=== PATIENT | male | born 1965 | race Caucasian/White ===

== ENCOUNTER → 2017-09-11 | Outpatient (CLI) | payer OTHER ==
[~2017-09-11] MED LIST: ACET325 PO; ACETAMINOP325 MG/10. PT; ALBU90OI INH; AMLO5 PO; AMOX500 PO; ASCO500 PT; ASPI325 PO; ASPI325 PT; ATOR80 PO; BASAGLAR K100 UNIT/1 SC; BISA10S PR; Bactrim 400-801 EACH PT; CEPH500 PO; CHOL10002 PT; CITA20 PO; CITA20 PT; CLON.2 PT; CLON.3TP TOP; CODGUAEL PO; CVS DISPOSABLE399 ML PR; Docu Liqui50 MG/5 ML PT; FENO54; GUAI600T33 PO; HYDACE5 PO; HYDRA25 PT; Hair, Skin & N1 EACH PT; INSDET100 SC; INSU100I6 SC; INSULANPEN SC; LISI20 PO; LISI5 PO; LITH300C PO; LORA1 PT; LOSA25 PT; METO10 PT; METO25 PO; METO25ER PT; MORP20L PT; Milk Of Ma400 MG/5 M PO; Milk Of Ma400 MG/5 M PT; Multivitamin1 EAC1 PT; NAPR375 PO; NEOPOLHCSU AU; NICO21TP SC; NUTRISOURCE FI205 GM PT; ONDA4ODT SL; Omeprazole20 M1 PT; PANT40; PANT40 PT; POTA20LUD PT; PRAV20 PO; PROM25 PT; Pedi-Dri 100,0060 GM TOP; Protonix40 MG PT; RANI150; RANI150 PT; SCOPTP TOP; SPACER IH; Ventolin Soln3 ML INH
[2017-09-11 21:44] LABS: Adenovirus F 40/41 Not Detected (NOT DETECT); Astrovirus Not Detected (NOT DETECT); Campylobacter Sp Not Detected (NOT DETECT); Cryptosporidium Not Detected (NOT DETECT); Cyclospora Cayetanensis Not Detected (NOT DETECT); E. Coli O157 Not Detected (NOT DETECT); Entamoeba Histolytica Not Detected (NOT DETECT); Enteroaggregative E. coli-EAEC Not Detected (NOT DETECT); Enteropathogenic E. coli-EPEC Not Detected (NOT DETECT); Enterotoxigenic E. coli-ETEC Not Detected (NOT DETECT); Giardia Lamblia Not Detected (NOT DETECT); Norovirus GI/GII Not Detected (NOT DETECT); Plesiomonas Shigelloides Not Detected (NOT DETECT); Rotavirus A Not Detected (NOT DETECT); Salmonella Sp Not Detected (NOT DETECT); Sapovirus Not Detected (NOT DETECT); Shiga Toxin-prod E. coli-STEC Not Detected (NOT DETECT); Shigella/Enteroin E. coli-EIEC Not Detected (NOT DETECT); Vibrio Cholerae Not Detected (NOT DETECT); Vibrio Sp Not Detected (NOT DETECT); Yersinia Enterocolitica Not Detected (NOT DETECT)
== END | disposition home or self-care (01) ==
LOC: LAB UVN 21:42
PROVIDERS: Family Medicine
DX: R19.7 Diarrhea, unspecified (principal)
CPT/HCPCS: 87507

== ENCOUNTER 2017-09-29 23:14 | Emergency (ER) | payer OTHER ==
[~2017-09-29] VITALS: Ht 172.7 cm; Wt 63.2 kg
[~2017-09-29 23:14] MED LIST changes: -ACETAMINOP325 MG/10. PT; -ASCO500 PT; -BASAGLAR K100 UNIT/1 SC; -CHOL10002 PT; -CLON.2 PT; -HYDRA25 PT; -Hair, Skin & N1 EACH PT; -INSULANPEN SC; -LORA1 PT; -LOSA25 PT; -METO10 PT; -MORP20L PT; -Multivitamin1 EAC1 PT; -ONDA4ODT SL; -Omeprazole20 M1 PT; -POTA20LUD PT; -PROM25 PT; -Protonix40 MG PT
[2017-09-30] MEDS ORDERED: LOSA25 PT (00:24)
[2017-09-30] MEDS ORDERED: Hair, Skin & N1 EACH PT (00:25)
[2017-09-30] MEDS ORDERED: RANI150 PT (00:27)
[2017-09-30] MEDS ORDERED: CLON.2 PT (00:28)
[2017-09-30 00:29] LABS: BASOPHILS ABSOLUTE AUTO 0.07 K/mm3 (0.00-0.23); BASOPHILS PERCENT AUTO 1 % (0-2); EOSINOPHILS ABSOLUTE AUTO 0.65 K/mm3 (0.00-0.68); EOSINOPHILS PERCENT AUTO 5 % (0-6); Hematocrit 36.3 % (37.0-53.0); IMMATURE GRAN ABSOLUTE AUTO 0.07 K/mm3 (0.00-0.10); IMMATURE GRAN PERCENT AUTO 1 % (0-1); LYMPHOCYTES PERCENT AUTO 21 % (21-46); MONOCYTES ABSOLUTE AUTO 0.78 K/mm3 (0.16-1.47); MONOCYTES PERCENT AUTO 6 % (4-13); Mean Corpuscular HGB 25.5 pg (26.0-34.0); Mean Corpuscular HGB Conc 30.3 g/dL (31.5-36.5); Mean Corpuscular Volume 84 fL (80-100); Mean Platelet Volume 10.7 fL (9.1-12.4); NEUTROPHILS ABSOLUTE AUTO 9.41 K/mm3 (1.96-9.15); NEUTROPHILS PERCENT AUTO 68 % (41-73); Platelet Count 338 K/mm3 (150-400); RDW Standard Deviation 49.5 fL (35.1-46.3); Red Blood Cell Count 4.31 M/mm3 (4.30-5.90); White Blood Cell Count 13.88 K/mm3 (4.00-11.30)
[2017-09-30 00:48] LABS: Alanine Aminotransfer (ALT/SGP 21 U/L (12-78); Albumin, Blood 3.6 g/dL (3.4-5.0); Albumin/Globulin Ratio 0.6 (0.8-1.8); Alk Phos 104 U/L (50-136); Anion Gap 8 mmol/L (6-16); Aspartate Aminotrans (AST/SGOT 14 U/L (12-37); Bilirubin, Total 0.3 mg/dL (0.1-1.0); Blood Urea Nitrogen 38 mg/dL (8-24); Bun/Creatinine Ratio 31.9 (12.0-20.0); CO2, Blood 33 mmol/L (21-32); Chloride, Blood 99 mmol/L (98-108); Creatinine, Blood 1.19 mg/dL (0.60-1.20); Globulin, Blood 5.8 g/dL (2.2-4.0); Glomerular Filtration Rate >60 (60-); Glucose, Blood 111 mg/dL (70-99); Potassium, Blood 3.4 mmol/L (3.5-5.5); Sodium, Blood 140 mmol/L (136-145); Total Protein, Blood 9.4 g/dL (6.4-8.2)
[2017-09-30] MEDS ORDERED: HYDRA25 PT (00:48)
[2017-09-30] MEDS ORDERED: LORA1 PT (00:48)
[2017-09-30] MEDS ORDERED: BASAGLAR K100 UNIT/1 SC (00:52)
== END 2017-09-30 02:30 | disposition short-term general hospital (02) ==
LOC: ER 23:14
PROVIDERS: Emergency Medicine
DX: K92.2 Gastrointestinal hemorrhage, unspecified (principal); I12.9 Hypertensive chronic kidney disease with stage 1 through stage 4 chronic kidney disease, or unspecified chronic kidney disease; N18.3 Chronic kidney disease, stage 3 (moderate); E78.5 Hyperlipidemia, unspecified; F32.9 Major depressive disorder, single episode, unspecified; Z86.73 Personal history of transient ischemic attack (TIA), and cerebral infarction without residual deficits; Z79.82 Long term (current) use of aspirin; Z79.899 Other long term (current) drug therapy; Z79.4 Long term (current) use of insulin; Z87.891 Personal history of nicotine dependence
CPT/HCPCS: 80053; 82272; 83690; 85025; 86850; 86900; 86901; 96374; 96375; 99285; C9113; J2405

== ENCOUNTER → 2017-10-09 | Outpatient (CLI) | payer OTHER ==
[~2017-10-09] MED LIST changes: +ACETAMINOP325 MG/10. PT; +ASCO500 PT; +BASAGLAR K100 UNIT/1 SC; +CHOL10002 PT; +CLON.2 PT; +HYDRA25 PT; +Hair, Skin & N1 EACH PT; +INSULANPEN SC; +LORA1 PT; +LOSA25 PT; +METO10 PT; +MORP20L PT; +Multivitamin1 EAC1 PT; +ONDA4ODT SL; +Omeprazole20 M1 PT; +POTA20LUD PT; +PROM25 PT; +Protonix40 MG PT
== END | disposition home or self-care (01) ==
LOC: LAB UVN 12:00
DX: L08.9 Local infection of the skin and subcutaneous tissue, unspecified (principal)
CPT/HCPCS: 87070; 87077; 87147; 87186; 87205

== ENCOUNTER 2017-11-12 10:12 | Emergency (ER) | payer OTHER ==
[~2017-11-12] VITALS: Ht 172.7 cm; Wt 63.2 kg
[~2017-11-12 10:12] MED LIST changes: -ACETAMINOP325 MG/10. PT; -ASCO500 PT; -CHOL10002 PT; -INSULANPEN SC; -METO10 PT; -MORP20L PT; -Multivitamin1 EAC1 PT; -ONDA4ODT SL; -Omeprazole20 M1 PT; -POTA20LUD PT; -PROM25 PT; -Protonix40 MG PT
[2017-11-12] MEDS ORDERED: METO10 PT (10:30)
[2017-11-12] MEDS ORDERED: INSULANPEN SC (10:30)
[2017-11-12] MEDS ORDERED: POTA20LUD PT (10:31)
[2017-11-12 11:10] LABS: Calcium, Ionized (POC) 1.17 mmol/L (1.10-1.46); Chloride (POC) 100 mmol/L (98-108); Creatinine (POC) 1.2 mg/dL (0.8-1.3); Glucose (ISTAT POC) 191 mg/dL (70-99); Potassium (POC) 3.3 mmol/L (3.5-5.5); Sodium (POC) 143 mmol/L (135-148); Total CO2 (POC) 30 mmol/L (21-32)
[2017-11-12] MEDS ORDERED: Protonix40 MG PT (11:14)
== END 2017-11-12 12:20 | disposition home or self-care (01) ==
LOC: ER 10:12
PROVIDERS: Emergency Medicine
DX: K92.2 Gastrointestinal hemorrhage, unspecified (principal); G93.40 Encephalopathy, unspecified; Z79.899 Other long term (current) drug therapy; Z79.4 Long term (current) use of insulin; Z79.82 Long term (current) use of aspirin; Z86.73 Personal history of transient ischemic attack (TIA), and cerebral infarction without residual deficits; I12.9 Hypertensive chronic kidney disease with stage 1 through stage 4 chronic kidney disease, or unspecified chronic kidney disease; N18.3 Chronic kidney disease, stage 3 (moderate); E78.5 Hyperlipidemia, unspecified; F32.9 Major depressive disorder, single episode, unspecified
CPT/HCPCS: 36415; 80047; 82271; 82272; 85014; 96374; 99284; C9113

== ENCOUNTER 2018-02-25 09:09 | Inpatient (IN) | payer OTHER ==
[~2018-02-25] VITALS: Ht 167.6 cm; Wt 58.0 kg
[~2018-02-25 09:09] MED LIST changes: +INSULANPEN SC; +METO10 PT; +POTA20LUD PT; +Protonix40 MG PT
[2018-02-25 09:35] LABS: BASOPHILS ABSOLUTE AUTO 0.05 K/mm3 (0.00-0.23); BASOPHILS PERCENT AUTO 0 % (0-2); EOSINOPHILS ABSOLUTE AUTO 0.01 K/mm3 (0.00-0.68); EOSINOPHILS PERCENT AUTO 0 % (0-6); Hematocrit 44.6 % (37.0-53.0); Hemoglobin 13.8 g/dL (13.5-17.5); IMMATURE GRAN ABSOLUTE AUTO 0.07 K/mm3 (0.00-0.10); IMMATURE GRAN PERCENT AUTO 0 % (0-1); LYMPHOCYTES ABSOLUTE AUTO 1.56 K/mm3 (0.84-5.20); LYMPHOCYTES PERCENT AUTO 8 % (21-46); MONOCYTES PERCENT AUTO 6 % (4-13); Mean Corpuscular HGB Conc 30.9 g/dL (31.5-36.5); Mean Corpuscular Volume 81 fL (80-100); Mean Platelet Volume 12.8 fL (9.1-12.4); NEUTROPHILS ABSOLUTE AUTO 16.75 K/mm3 (1.96-9.15); NEUTROPHILS PERCENT AUTO 85 % (41-73); Platelet Count 350 K/mm3 (150-400); RDW Coefficient Variation 18.6 % (11.7-14.2); RDW Standard Deviation 51.5 fL (35.1-46.3); Red Blood Cell Count 5.53 M/mm3 (4.30-5.90); White Blood Cell Count 19.64 K/mm3 (4.00-11.30)
[2018-02-25 09:53] LABS: Albumin, Blood 4.1 g/dL (3.4-5.0); Albumin/Globulin Ratio 0.7 (0.8-1.8); Bilirubin, Total 0.5 mg/dL (0.1-1.0); Calcium, Blood 10.8 mg/dL (8.5-10.1); Creatinine, Blood 1.58 mg/dL (0.60-1.20); Globulin, Blood 6.3 g/dL (2.2-4.0); Potassium, Blood 3.3 mmol/L (3.5-5.5); Total Protein, Blood 10.4 g/dL (6.4-8.2)
[2018-02-25 10:12] LABS: Source, Urine Catheter
[2018-02-25 10:18] LABS: Bilirubin, Urine Neg (Neg); Blood, Urine 3+ (Neg); Glucose Qualitative, Urine 3+ (Neg); Ketones, Urine 1+ (Neg); Leukocyte Esterase, Urine 3+ (Neg); Nitrite, Urine Neg (Neg); Protein, Urine 3+ (Neg); Urobilinogen, Urine NORM (Normal)
[2018-02-25 10:51] LABS: Appearance, Urine Cloudy (Clear); Color, Urine Yellow (P-Yellow)
[2018-02-25 10:53] LABS: White Blood Cells, Urine TNTC /hpf (0-5)
[2018-02-25 10:54] LABS: Bacteria Many /hpf; Squamous Epithelial Cells Few /hpf (Few)
[2018-02-25 11:46] LABS: International Normalized Ratio 1.03; Prothrombin Time Results 10.6 Sec (9.7-11.5)
[2018-02-25] MEDS ORDERED: ASCO500 PT (12:44)
[2018-02-25] MEDS ORDERED: CHOL10002 PT (12:46)
[2018-02-25] MEDS ORDERED: LOSA25 PT (12:46)
[2018-02-25] MEDS ORDERED: Multivitamin1 EAC1 PT (12:47)
[2018-02-25] MEDS ORDERED: Omeprazole20 M1 PT (12:48)
[2018-02-25] MEDS ORDERED: CLON.2 PT (12:50)
[2018-02-25] MEDS ORDERED: ONDA4ODT SL (12:51)
[2018-02-25] MEDS ORDERED: ACETAMINOP325 MG/10. PT (12:53)
[2018-02-25] MEDS ORDERED: Docu Liqui50 MG/5 ML PT (12:55)
[2018-02-25] MEDS ORDERED: HYDRA25 PT (12:55)
[2018-02-25] MEDS ORDERED: BISA10S PR (12:55)
[2018-02-25] MEDS ORDERED: Milk Of Ma400 MG/5 M PT (12:56)
[2018-02-25] MEDS ORDERED: MORP20L PT (12:59)
[2018-02-25] MEDS ORDERED: PROM25 PT (13:00)
[2018-02-26 04:30] LABS: Hemoglobin 12.2 g/dL (13.5-17.5); Mean Corpuscular HGB 24.6 pg (26.0-34.0); Mean Platelet Volume 12.6 fL (9.1-12.4); Platelet Count 298 K/mm3 (150-400); RDW Coefficient Variation 18.7 % (11.7-14.2); RDW Standard Deviation 55.7 fL (35.1-46.3); Red Blood Cell Count 4.96 M/mm3 (4.30-5.90); White Blood Cell Count 17.56 K/mm3 (4.00-11.30)
[2018-02-26 04:39] LABS: Mean Corpuscular Volume 85 fL (80-100)
[2018-02-26 05:04] LABS: BAND PERCENT MAN 4 % (0-8); BASOPHILS PERCENT MAN 0 % (0-2); EOSINOPHILS PERCENT MAN 0 % (0-6); LYMPHOCYTES ABSOLUTE MAN 2.28 K/mm3 (0.84-5.20); LYMPHOCYTES PERCENT MAN 13 % (21-46); MONOCYTES ABSOLUTE MAN 1.05 K/mm3 (0.16-1.47); MONOCYTES PERCENT MAN 6 % (4-13); NEUTROPHILS ABSOLUTE MAN 14.22 K/mm3 (1.96-9.15); SEG NEUTROPHILS PERCENT MAN 77 % (41-73); TOTAL CELLS COUNTED 100
[2018-02-26 05:04] LABS: Anion Gap 10 mmol/L (6-16); Blood Urea Nitrogen 32 mg/dL (8-24); CO2, Blood 27 mmol/L (21-32); Chloride, Blood 116 mmol/L (98-108); Creatinine, Blood 1.28 mg/dL (0.60-1.20); Glomerular Filtration Rate >60 (60-); Glucose, Blood 212 mg/dL (70-99); Potassium, Blood 3.2 mmol/L (3.5-5.5); Sodium, Blood 153 mmol/L (136-145)
[2018-02-26 05:05] LABS: Calcium, Blood 8.8 mg/dL (8.5-10.1)
[2018-02-27 11:11] LABS: Anion Gap 10 mmol/L (6-16); Blood Urea Nitrogen 34 mg/dL (8-24); Bun/Creatinine Ratio 33.7 (12.0-20.0); CO2, Blood 22 mmol/L (21-32); Calcium, Blood 8.3 mg/dL (8.5-10.1); Chloride, Blood 115 mmol/L (98-108); Creatinine, Blood 1.01 mg/dL (0.60-1.20); Glomerular Filtration Rate >60 (60-); Glucose, Blood 166 mg/dL (70-99); Potassium, Blood 2.9 mmol/L (3.5-5.5); Sodium, Blood 147 mmol/L (136-145)
== END 2018-02-27 13:45 | DRG 698 ==
LOC: ER 09:09 → PCU 11:15 → MEDS 02-26 16:16
PROVIDERS: Emergency Medicine; Family Medicine
DX: T83.518A Infection and inflammatory reaction due to other urinary catheter, initial encounter (principal); J69.0 Pneumonitis due to inhalation of food and vomit; N39.0 Urinary tract infection, site not specified; Z51.5 Encounter for palliative care; N17.9 Acute kidney failure, unspecified; E87.0 Hyperosmolality and hypernatremia; Z79.4 Long term (current) use of insulin; N18.3 Chronic kidney disease, stage 3 (moderate); E78.5 Hyperlipidemia, unspecified; Z87.891 Personal history of nicotine dependence; Z66 Do not resuscitate; Z74.01 Bed confinement status; E86.0 Dehydration; E87.6 Hypokalemia; E11.22 Type 2 diabetes mellitus with diabetic chronic kidney disease; R11.10 Vomiting, unspecified; I12.9 Hypertensive chronic kidney disease with stage 1 through stage 4 chronic kidney disease, or unspecified chronic kidney disease; I69.391 Dysphagia following cerebral infarction; I69.398 Other sequelae of cerebral infarction
CPT/HCPCS: 36415; 71045; 74176; 80048; 80053; 81001; 82271; 82947; 83036; 83605; 84145; 85025; 85610; 85730; 87077; 87086; 87186; 93005; 93010; 94640; 94760; 96361; 96365; 96368; 99285; J0360; J0696; J1650; J1815; J1956; J2405; J2550; J3480; J7030

== ENCOUNTER → 2018-03-27 | Outpatient (CLI) | payer OTHER ==
[~2018-03-27] MED LIST changes: +ACETAMINOP325 MG/10. PT; +ASCO500 PT; +CHOL10002 PT; +MORP20L PT; +Multivitamin1 EAC1 PT; +ONDA4ODT SL; +Omeprazole20 M1 PT; +PROM25 PT
[2018-03-27 13:55] LABS: Albumin, Blood 3.4 g/dL (3.4-5.0); Anion Gap 8 mmol/L (6-16); Blood Urea Nitrogen 39 mg/dL (8-24); Bun/Creatinine Ratio 31.7 (12.0-20.0); CO2, Blood 25 mmol/L (21-32); Chloride, Blood 105 mmol/L (98-108); Creatinine, Blood 1.23 mg/dL (0.60-1.20); Glomerular Filtration Rate >60 (60-); Glucose, Blood 153 mg/dL (70-99); Phosphorus, Blood 3.1 mg/dL (2.5-4.9); Potassium, Blood 4.5 mmol/L (3.5-5.5); Sodium, Blood 138 mmol/L (136-145)
== END | disposition home or self-care (01) ==
LOC: LAB UVN 13:30 → EDSTATUS 13:53
PROVIDERS: Family Medicine
DX: N18.3 Chronic kidney disease, stage 3 (moderate) (principal)
CPT/HCPCS: 80069; 85018